=== PATIENT | female | born 1945 | race Two or more races ===

== ENCOUNTER 2017-12-06 12:41 | Emergency (ER) | payer OTHER ==
[~2017-12-06] VITALS: Ht 144.8 cm; Wt 68.0 kg
[~2017-12-06 12:41] MED LIST: CEFUROXIME250 MG PO; CELEXA40 MG PO; COZAAR100 MG PO; DITROPAN XL5 MG PO; FUROSEMIDE40 MG PO; GLIPIZIDE5 MG; GLUMETZA1000 MG PO; LAMICTAL100 M1 PO; PLAVIX75 MG; SENNA8.6 MG PO; TOPROL XL25 MG PO; VASOTEC10 MG NGT; ZOCOR20 MG PO
[2017-12-06] MEDS ORDERED: ZANTAC150 M3 (13:28)
[2017-12-06] MEDS ORDERED: COGENTIN2 MG/2 ML (13:33)
[2017-12-06] MEDS ORDERED: LATUDA20 MG (13:33)
== END 2017-12-06 16:15 | disposition home or self-care (01) ==
LOC: ER 12:41
DX: M25.551 Pain in right hip (principal)

== ENCOUNTER → 2018-03-22 | Emergency (ER) | payer OTHER ==
[~2018-03-22] VITALS: Ht 144.8 cm; Wt 68.5 kg
[~2018-03-22] MED LIST changes: +COGENTIN2 MG/2 ML; +LATUDA20 MG; +LATUDA60 MG; +VISTARIL25 MG PO; +ZANTAC150 M3
== END | disposition home or self-care (01) ==
LOC: ER 02:11
DX: I10 Essential (primary) hypertension (principal); F41.8 Other specified anxiety disorders

== ENCOUNTER → 2018-08-25 | Emergency (ER) | payer OTHER ==
[~2018-08-25] VITALS: Ht 144.8 cm; Wt 70.3 kg
[~2018-08-25] MED LIST changes: +LAMICTAL200 M1 PO; +LATUDA80 MG PO; +LOSARTAN-HCTZ1 EAC1 PO; +METFORMIN HCL500 M2 PO; +NORVASC2.5 M1 PO; +RESTORIL30 M1 PO
== END | disposition left against medical advice (07) ==
LOC: ER 22:43
DX: Z53.20 Procedure and treatment not carried out because of patient's decision for unspecified reasons (principal)

== ENCOUNTER 2018-10-05 15:20 | Outpatient (CLI) | payer OTHER | END 2018-10-05 16:21 | disposition home or self-care (01) | LOC: RAD 15:20 | DX: M54.5 Low back pain (principal); M25.551 Pain in right hip; M25.552 Pain in left hip ==

== ENCOUNTER 2018-10-18 12:56 | Outpatient (CLI) | payer OTHER | END 2018-10-18 13:00 | disposition home or self-care (01) | LOC: RAD 12:56 | DX: M47.28 Other spondylosis with radiculopathy, sacral and sacrococcygeal region (principal); M47.898 Other spondylosis, sacral and sacrococcygeal region ==

== ENCOUNTER 2018-12-27 11:35 | Outpatient (CLI) | payer OTHER | END 2018-12-27 11:38 | disposition home or self-care (01) | LOC: RAD 501 11:35 | DX: S62.91XA Unspecified fracture of right hand, initial encounter for closed fracture (principal) ==

== ENCOUNTER 2019-02-09 02:53 | Emergency (ER) | payer OTHER ==
[~2019-02-09] VITALS: Ht 144.8 cm; Wt 68.0 kg
[2019-02-09] MEDS ORDERED: SEN-O-TAB8.6 MG PO (03:27)
[2019-02-09] MEDS ORDERED: FOLIC ACID0.4 MG PO (03:27)
[2019-02-09] MEDS ORDERED: ZANTAC150 M3 (03:28)
== END 2019-02-09 13:43 | disposition home or self-care (01) ==
LOC: ER 02:53
DX: K52.89 Other specified noninfective gastroenteritis and colitis (principal)

== ENCOUNTER 2019-04-12 10:45 | Outpatient (CLI) | payer OTHER ==
[~2019-04-12 10:45] MED LIST changes: +FOLIC ACID0.4 MG PO; +SEN-O-TAB8.6 MG PO
== END 2019-04-12 10:47 | disposition home or self-care (01) ==
LOC: RAD 10:45
DX: J44.1 Chronic obstructive pulmonary disease with (acute) exacerbation (principal)

== ENCOUNTER → 2019-06-14 | Outpatient (CLI) | payer OTHER | END | disposition home or self-care (01) | LOC: NUCLEAR 08:05 | DX: I25.10 Atherosclerotic heart disease of native coronary artery without angina pectoris (principal) | CPT/HCPCS: 78452; 93017; A9500; J0153 ==

== ENCOUNTER 2019-10-22 19:36 | Emergency (ER) | payer OTHER ==
[~2019-10-22] VITALS: Ht 144.8 cm; Wt 72.6 kg
== END 2019-10-22 23:24 | disposition home or self-care (01) ==
LOC: ER 19:36
DX: M54.5 Low back pain (principal)

== ENCOUNTER 2020-10-07 14:58 | Outpatient (CLI) | payer OTHER | END 2020-10-07 15:04 | disposition home or self-care (01) | LOC: RAD 14:58 | PROVIDERS: ATTEND Internal Medicine | DX: M43.8X4 Other specified deforming dorsopathies, thoracic region (principal); M54.5 Low back pain; M54.6 Pain in thoracic spine; M54.2 Cervicalgia ==

== ENCOUNTER 2020-12-17 11:20 | Outpatient (CLI) | payer OTHER | END 2020-12-17 11:29 | disposition home or self-care (01) | LOC: MAMO-SONO 11:20 | PROVIDERS: ATTEND Internal Medicine | DX: Z12.31 Encounter for screening mammogram for malignant neoplasm of breast (principal); N64.59 Other signs and symptoms in breast ==

== ENCOUNTER 2021-02-05 09:39 | Outpatient (CLI) | payer OTHER | END 2021-02-05 09:40 | disposition home or self-care (01) | LOC: NUCLEAR 09:39 | PROVIDERS: ATTEND Internal Medicine | DX: I49.9 Cardiac arrhythmia, unspecified (principal) ==

== ENCOUNTER 2021-02-09 14:40 | Emergency (ER) | payer OTHER ==
[~2021-02-09] VITALS: Ht 144.8 cm; Wt 77.1 kg
[2021-02-09] MEDS ORDERED: KETO10TA2 PO (18:24)
[2021-02-09] MEDS ORDERED: CARAFATE1 GM PO (18:24)
[2021-02-09] MEDS ORDERED: NORFLEX100MG PO (18:24)
== END 2021-02-09 18:31 | disposition home or self-care (01) ==
LOC: ER 14:40
DX: M54.5 Low back pain (principal)

== ENCOUNTER 2021-02-13 18:16 | Emergency (ER) | payer OTHER ==
[~2021-02-13] VITALS: Ht 144.8 cm; Wt 76.2 kg
[~2021-02-13 18:16] MED LIST changes: +CARAFATE1 GM PO; +KETO10TA2 PO; +NORFLEX100MG PO
[2021-02-13] MEDS ORDERED: BACTRIM DS TAB1 EACH PO (22:56)
== END 2021-02-13 23:25 | disposition home or self-care (01) ==
LOC: ER 18:16
DX: M54.5 Low back pain (principal); R30.0 Dysuria; R53.81 Other malaise

== ENCOUNTER 2021-04-04 12:45 | Emergency (ER) | payer OTHER ==
[~2021-04-04] VITALS: Ht 144.8 cm; Wt 70.8 kg
[~2021-04-04 12:45] MED LIST changes: +BACTRIM DS TAB1 EACH PO
[2021-04-04] MEDS ORDERED: AMLODIPINE BESYL5 MG PO (13:10)
[2021-04-04] MEDS ORDERED: LOSARTAN POTASS50 MG PO (13:10)
[2021-04-04] MEDS ORDERED: CLOPIDOGREL BIS75 MG PO (13:10)
[2021-04-04] MEDS ORDERED: SIMVASTATIN20 MG PO (13:11)
[2021-04-04] MEDS ORDERED: OXYBUTYNIN CHLOR5 MG PO (13:11)
[2021-04-04] MEDS ORDERED: LAMICTAL200 MG PO (13:11)
[2021-04-04] MEDS ORDERED: METFORMIN HCL500 M4 PO (13:11)
[2021-04-04] MEDS ORDERED: RESTORIL30 MG PO (13:11)
[2021-04-04] MEDS ORDERED: CLONAZEPAM0.5 MG PO (13:11)
== END 2021-04-04 17:34 | disposition home or self-care (01) ==
LOC: ER 12:45
DX: S00.83XA Contusion of other part of head, initial encounter (principal); W18.09XA Striking against other object with subsequent fall, initial encounter; Y93.89 Activity, other specified; Y92.018 Other place in single-family (private) house as the place of occurrence of the external cause; Y99.8 Other external cause status

== ENCOUNTER 2022-05-07 11:20 | Emergency (ER) | payer OTHER ==
[~2022-05-07] VITALS: Ht 142.2 cm; Wt 72.6 kg
[~2022-05-07 11:20] MED LIST changes: +AMLODIPINE BESYL5 MG PO; +CLONAZEPAM0.5 MG PO; +CLOPIDOGREL BIS75 MG PO; +LAMICTAL200 MG PO; +LOSARTAN POTASS50 MG PO; +METFORMIN HCL500 M4 PO; +OXYBUTYNIN CHLOR5 MG PO; +RESTORIL30 MG PO; +SIMVASTATIN20 MG PO
[2022-05-07] MEDS ORDERED: PLAVIX75 MG PO (11:36)
[2022-05-07] MEDS ORDERED: DITROPAN XL5 MG PO (11:37)
[2022-05-07] MEDS ORDERED: IBU800 MG PO (14:15)
== END 2022-05-07 14:33 | disposition home or self-care (01) ==
LOC: ER 11:20
DX: M48.50XA Collapsed vertebra, not elsewhere classified, site unspecified, initial encounter for fracture (principal); M25.551 Pain in right hip; E11.9 Type 2 diabetes mellitus without complications; Z79.84 Long term (current) use of oral hypoglycemic drugs; I10 Essential (primary) hypertension; F03.90 Unspecified dementia, unspecified severity, without behavioral disturbance, psychotic disturbance, mood disturbance, and anxiety; R32 Unspecified urinary incontinence; M54.50 Low back pain, unspecified

== ENCOUNTER 2022-06-26 08:46 | Outpatient (CLI) | payer OTHER ==
[~2022-06-26 08:46] MED LIST changes: +IBU800 MG PO; +PLAVIX75 MG PO
== END 2022-06-26 08:52 | disposition home or self-care (01) ==
LOC: RAD 08:46
PROVIDERS: ATTEND Anesthesiology
DX: J12.89 Other viral pneumonia (principal)

== ENCOUNTER 2022-08-17 10:09 | Emergency (ER) | payer OTHER ==
[~2022-08-17] VITALS: Ht 144.8 cm; Wt 68.0 kg
[2022-08-17] MEDS ORDERED: VISTARIL50 MG PO (16:12)
== END 2022-08-17 16:38 ==
LOC: ER 10:09
DX: R42 Dizziness and giddiness (principal); F41.9 Anxiety disorder, unspecified; E11.9 Type 2 diabetes mellitus without complications; Z79.84 Long term (current) use of oral hypoglycemic drugs; I10 Essential (primary) hypertension; Z20.822 Contact with and (suspected) exposure to COVID-19; F01.50 Vascular dementia, unspecified severity, without behavioral disturbance, psychotic disturbance, mood disturbance, and anxiety

== ENCOUNTER 2022-09-08 12:43 | Outpatient (CLI) | payer OTHER ==
[~2022-09-08 12:43] MED LIST changes: +VISTARIL50 MG PO
== END 2022-09-08 12:53 | disposition home or self-care (01) ==
LOC: PPH VACUNA 12:43
PROVIDERS: ATTEND Emergency Medicine Pediatric Emergency Medicine
DX: Z23 Encounter for immunization (principal)

== ENCOUNTER 2022-11-04 12:08 | Emergency (ER) | payer OTHER ==
[~2022-11-04] VITALS: Ht 142.2 cm; Wt 68.0 kg
== END 2022-11-04 15:44 | disposition home or self-care (01) ==
LOC: ER 12:08
DX: S09.90XA Unspecified injury of head, initial encounter (principal); W19.XXXA Unspecified fall, initial encounter; Y93.9 Activity, unspecified; Y92.9 Unspecified place or not applicable; E11.9 Type 2 diabetes mellitus without complications; Z79.84 Long term (current) use of oral hypoglycemic drugs; E78.00 Pure hypercholesterolemia, unspecified; I10 Essential (primary) hypertension

== ENCOUNTER 2022-12-01 16:11 | Emergency (ER) | payer OTHER ==
[~2022-12-01] VITALS: Ht 157.5 cm; Wt 77.1 kg
== END 2022-12-01 21:00 | disposition home or self-care (01) ==
LOC: ER 16:11
DX: M25.551 Pain in right hip (principal)

== ENCOUNTER 2022-12-14 08:18 | Emergency (ER) | payer OTHER ==
[~2022-12-14] VITALS: Ht 149.9 cm; Wt 68.0 kg
== END 2022-12-14 11:49 | disposition home or self-care (01) ==
LOC: ER 08:18
DX: M54.17 Radiculopathy, lumbosacral region (principal); E11.9 Type 2 diabetes mellitus without complications; Z79.84 Long term (current) use of oral hypoglycemic drugs; I10 Essential (primary) hypertension; F03.90 Unspecified dementia, unspecified severity, without behavioral disturbance, psychotic disturbance, mood disturbance, and anxiety; Z86.73 Personal history of transient ischemic attack (TIA), and cerebral infarction without residual deficits

== ENCOUNTER 2022-12-23 01:56 | Emergency (ER) | payer OTHER ==
[~2022-12-23] VITALS: Ht 142.2 cm; Wt 68.0 kg
[2022-12-23] MEDS ORDERED: ZYNCOF 20-400120 ML PO (06:16)
== END 2022-12-23 06:25 ==
LOC: ER 01:56
DX: R06.02 Shortness of breath (principal); I10 Essential (primary) hypertension; E11.9 Type 2 diabetes mellitus without complications; Z79.84 Long term (current) use of oral hypoglycemic drugs

== ENCOUNTER 2023-11-30 19:46 | Emergency (ER) | payer OTHER ==
[~2023-11-30] VITALS: Ht 142.2 cm; Wt 67.6 kg
[~2023-11-30 19:46] MED LIST changes: +ZYNCOF 20-400120 ML PO
[2023-11-30] MEDS ORDERED: FOLIC ACID1 MG (20:10)
[2023-11-30] MEDS ORDERED: CLOPIDOGREL BIS75 MG (20:10)
[2023-11-30] MEDS ORDERED: AMLODIPINE BESYL5 MG (20:10)
[2023-11-30] MEDS ORDERED: LURASIDONE HCL120 MG (20:12)
[2023-11-30] MEDS ORDERED: ORPHENADRINE CITRATE 30 MG/ML AMPUL IM ONE (20:45)
[2023-11-30] MEDS ORDERED: KETOROLAC TROMETHAMINE 60 MG VIAL IM ONE (20:45)
== END 2023-11-30 20:46 | disposition home or self-care (01) ==
LOC: ER 19:46
DX: M54.89 Other dorsalgia (principal); E11.9 Type 2 diabetes mellitus without complications; Z79.84 Long term (current) use of oral hypoglycemic drugs; E03.9 Hypothyroidism, unspecified; I10 Essential (primary) hypertension

== ENCOUNTER → 2023-12-12 11:29 | Outpatient (CLI) | payer OTHER ==
[~2023-12-12 11:29] MED LIST changes: +AMLODIPINE BESYL5 MG; +CLOPIDOGREL BIS75 MG; +FOLIC ACID1 MG; +LURASIDONE HCL120 MG
== END | disposition home or self-care (01) ==
LOC: NUCLEAR 11:29
PROVIDERS: ATTEND Internal Medicine
DX: M81.0 Age-related osteoporosis without current pathological fracture (principal)

== ENCOUNTER 2024-05-07 14:09 | Outpatient (CLI) | payer OTHER | END 2024-05-07 14:15 | disposition home or self-care (01) | LOC: RAD 14:09 | PROVIDERS: ATTEND Internal Medicine | DX: M54.2 Cervicalgia (principal); M54.9 Dorsalgia, unspecified; M25.562 Pain in left knee; M25.551 Pain in right hip ==

== ENCOUNTER 2024-05-12 20:15 | Emergency (ER) | payer OTHER ==
[~2024-05-12] VITALS: Ht 142.2 cm; Wt 69.4 kg
[2024-05-12] MEDS ORDERED: LATUDA80 MG (20:24)
[2024-05-12] MEDS ORDERED: NORVASC5 MG PO (20:25)
[2024-05-12] MEDS ORDERED: ORPHENADRINE CITRATE 30 MG/ML AMPUL IM ONE (21:30)
[2024-05-12] MEDS ORDERED: KETOROLAC TROMETHAMINE 30 MG VIAL IM ONE (21:30)
[2024-05-12 22:08] LABS: HEMATOCRIT 43.3 % (36.0-45.00); HEMOGLOBIN 14.8 g/dL (12.0-15.00); MEAN CELL VOLUME 93.4 fL (80.00-100.00); MEAN CORPUSCULAR HGB CONC 34.2 g/dl (32.0-36.0); PLATELET COUNT 240 K/uL (150-450); RED BLOOD COUNT 4.64 M/uL (4.00-6.00); RED CELL DISTRIBUTION WIDTH 13.3 % (11.5-14.5)
[2024-05-12 22:11] LABS: CALCIUM 10.5 mg/dL (8.5-10.1); CREATININE SERUM 0.82 mg/dL (0.55-1.02); GFR 67.6; POTASSIUM 3.72 mEq/L (3.5-5.1)
[2024-05-12 22:30] LABS: PH,URINE 6.5 (5.0-8.0); URINE APPEARANCE Clear; URINE BILIRRUBIN Negative (NEGATIVE); URINE BLOOD Negative; URINE COLOR Yellow; URINE GLUCOSE Negative (NEGATIVE); URINE KETONE Negative (NEGATIVE); URINE LEUKOCYTE Moderate; URINE NITRATE Positive; URINE PROTEIN Negative (NEGATIVE)
[2024-05-12 22:33] LABS: URINE EPITHELIAL CELLS 13.4 uL (0.0-38.8); URINE RBC 6.5 uL (0.0-20.8); URINE WBC 478.8 uL (0.0-23.2)
[2024-05-12 22:36] LABS: URINE BACTERIA > 9821.5 uL (0.0-1933); URINE CAST 0.15 uL (0.0-1.40)
[2024-05-12] MEDS ORDERED: MACRODANTIN100 M1 PO (22:45)
[2024-05-12] MEDS ORDERED: CEFTRIAXONE SODIUM 1,000 MG VIAL ONE (22:57)
[2024-05-12] MEDS ORDERED: CEFTRIAXONE SODIUM 1,000 MG VIAL IM ONE (23:00)
== END 2024-05-13 00:14 ==
LOC: ER 20:16
PROVIDERS: Nurse Practitioner Family
DX: M54.9 Dorsalgia, unspecified (principal); G89.29 Other chronic pain; M51.36 Other intervertebral disc degeneration, lumbar region; I10 Essential (primary) hypertension; E11.9 Type 2 diabetes mellitus without complications; Z79.84 Long term (current) use of oral hypoglycemic drugs
CPT/HCPCS: 36415; 96372; 99282; J0696; J1885; J3490

== ENCOUNTER → 2024-06-14 09:33 | Outpatient (CLI) | payer OTHER ==
[~2024-06-14 09:33] MED LIST changes: +LATUDA80 MG; +LEXAPRO5 MG; +MACRODANTIN100 M1 PO; +NORVASC5 MG PO; +SEROQUEL25 MG
== END | disposition home or self-care (01) ==
LOC: NUCLEAR 09:33
PROVIDERS: ATTEND Internal Medicine
DX: R00.0 Tachycardia, unspecified (principal)

== ENCOUNTER 2024-06-15 22:16 | Emergency (ER) | payer OTHER ==
[~2024-06-15] VITALS: Ht 149.9 cm; Wt 59.0 kg
[~2024-06-15 22:16] MED LIST changes: -LEXAPRO5 MG; -SEROQUEL25 MG
[2024-06-15] MEDS ORDERED: SEROQUEL25 MG (22:22)
[2024-06-15] MEDS ORDERED: LEXAPRO5 MG (22:22)
[2024-06-16] MEDS ORDERED: ACETAMINOPHEN 500 MG GEL..CAP PO STA (00:39)
[2024-06-16] MEDS ORDERED: ACETAMINOPHEN 500 MG GEL..CAP PO ONE (00:40)
[2024-06-16] MEDS ORDERED: KETOROLAC TROMETHAMINE 30 MG VIAL IM STA (00:43)
[2024-06-16] MEDS ORDERED: KETOROLAC TROMETHAMINE 30 MG VIAL ONE (00:47)
== END 2024-06-16 01:47 | disposition home or self-care (01) ==
LOC: ER 22:16
DX: S79.812A Other specified injuries of left hip, initial encounter (principal); W06.XXXA Fall from bed, initial encounter; Y93.89 Activity, other specified; Y92.89 Other specified places as the place of occurrence of the external cause; Y99.8 Other external cause status; I10 Essential (primary) hypertension; E11.9 Type 2 diabetes mellitus without complications
CPT/HCPCS: 71111; 72170; 96372; 99283; J1885

== ENCOUNTER 2024-07-11 11:59 | Emergency (ER) | payer OTHER ==
[~2024-07-11] VITALS: Ht 142.2 cm; Wt 72.6 kg
[~2024-07-11 11:59] MED LIST changes: +LEXAPRO5 MG; +SEROQUEL25 MG
[2024-07-11] MEDS ORDERED: FOLIC ACID20 MG (12:44)
[2024-07-11] MEDS ORDERED: AZITHROMYCIN 500 MG TABLET PO ONE (13:00)
[2024-07-11] MEDS ORDERED: ACETAMINOPHEN 500 MG GEL..CAP PO ONE (13:00)
[2024-07-11] MEDS ORDERED: GUAIFENESIN/DEXTROMETHORPHAN 10ML BLIST.PACK PO ONE (13:00)
[2024-07-11 13:26] LABS: HEMOGLOBIN 14.2 g/dL (12.0-15.00); MEAN CELL VOLUME 93.2 fL (80.00-100.00); MEAN CORPUSCULAR HEMOGLOBIN 31.6 pg (27.00-32.0); MEAN CORPUSCULAR HGB CONC 33.9 g/dl (32.0-36.0); PLATELET COUNT 195 K/uL (150-450); RED BLOOD COUNT 4.51 M/uL (4.00-6.00); RED CELL DISTRIBUTION WIDTH 13.7 % (11.5-14.5)
[2024-07-11] MEDS ORDERED: TUSSIN100 MG/51 PO (14:17)
[2024-07-11] MEDS ORDERED: ZITHROMAX500 MG PO (14:17)
[2024-07-11] MEDS ORDERED: ZYRTEC10 MG PO (14:17)
== END 2024-07-11 14:46 | disposition home or self-care (01) ==
LOC: ER 12:00
PROVIDERS: General Practice
DX: J06.9 Acute upper respiratory infection, unspecified (principal); E11.9 Type 2 diabetes mellitus without complications; Z79.84 Long term (current) use of oral hypoglycemic drugs; Z20.822 Contact with and (suspected) exposure to COVID-19; I11.9 Hypertensive heart disease without heart failure

== ENCOUNTER 2024-11-22 14:03 | Emergency (ER) | payer OTHER ==
[~2024-11-22] VITALS: Ht 142.2 cm; Wt 72.6 kg
[~2024-11-22 14:03] MED LIST changes: +FOLIC ACID20 MG; +TUSSIN100 MG/51 PO; +ZITHROMAX500 MG PO; +ZYRTEC10 MG PO
[2024-11-22] MEDS ORDERED: NEURONTIN300 MG PO (14:16)
[2024-11-22] MEDS ORDERED: DITROPAN (14:18)
[2024-11-22 17:16] LABS: PH,URINE 7.5 (5.0-8.0); URINE APPEARANCE Cloudy; URINE BILIRRUBIN Negative (NEGATIVE); URINE BLOOD Negative; URINE COLOR Yellow; URINE GLUCOSE Negative (NEGATIVE); URINE KETONE Negative (NEGATIVE); URINE LEUKOCYTE Large; URINE NITRATE Positive; URINE PROTEIN Negative (NEGATIVE)
[2024-11-22 17:17] LABS: HEMATOCRIT 40.1 % (36.0-45.00); HEMOGLOBIN 13.2 g/dL (12.0-15.00); MEAN CELL VOLUME 94.7 fL (80.00-100.00); MEAN CORPUSCULAR HEMOGLOBIN 31.1 pg (27.00-32.0); MEAN CORPUSCULAR HGB CONC 32.8 g/dl (32.0-36.0); PLATELET COUNT 205 K/uL (150-450); RED BLOOD COUNT 4.23 M/uL (4.00-6.00); RED CELL DISTRIBUTION WIDTH 13.8 % (11.5-14.5)
[2024-11-22 17:20] LABS: URINE EPITHELIAL CELLS 12.6 uL (0.0-38.8); URINE RBC 3.3 uL (0.0-20.8); URINE WBC 295.1 uL (0.0-23.2)
[2024-11-22 17:26] LABS: URINE BACTERIA > 9821.5 uL (0.0-1933); URINE CAST 0.44 uL (0.0-1.40)
[2024-11-22 17:46] LABS: CALCIUM 8.7 mg/dL (8.5-10.1); CREATININE SERUM 0.77 mg/dL (0.55-1.02); GFR 72.5; POTASSIUM 4.47 mEq/L (3.5-5.1)
[2024-11-22 17:48] LABS: ALBUMIN 3.6 gm/dL (3.4-5.0); BILIRUBIN TOTAL 0.38 mg/dL (0.3-1.2); CALCIUM 8.7 mg/dL (8.5-10.1); CREATININE SERUM 0.84 mg/dL (0.55-1.02); GFR 65.57; GLOBULINA 3.3 G/DL (2.4-3.5); POTASSIUM 3.99 mEq/L (3.5-5.1); TOTAL PROTEIN 6.9 gm/dL (6.4-8.2)
[2024-11-22] MEDS ORDERED: KETOROLAC TROMETHAMINE 60 MG VIAL IM STA (19:03)
[2024-11-22] MEDS ORDERED: KETOROLAC TROMETHAMINE 60 MG VIAL IM ONE (19:14)
[2024-11-22] MEDS ORDERED: MACROBID 100 M100 MG PO (19:44)
[2024-11-22] MEDS ORDERED: CEFTRIAXONE SODIUM 1,000 MG VIAL IV SCH (19:45)
[2024-11-22] MEDS ORDERED: CEFTRIAXONE SODIUM 2,000 MG VIAL ONE (20:03)
== END 2024-11-22 23:11 | disposition home or self-care (01) ==
LOC: ER 14:05
DX: R60.0 Localized edema (principal); M54.17 Radiculopathy, lumbosacral region; I10 Essential (primary) hypertension; E11.9 Type 2 diabetes mellitus without complications; Z79.84 Long term (current) use of oral hypoglycemic drugs
CPT/HCPCS: 36415; 71045; 72100; 96365; 96366; 96372; 99283; J0696; J1885

== ENCOUNTER 2024-11-26 18:01 | Emergency (ER) | payer OTHER ==
[~2024-11-26] VITALS: Ht 142.2 cm; Wt 76.7 kg
[~2024-11-26 18:01] MED LIST changes: +DITROPAN; +MACROBID 100 M100 MG PO; +NEURONTIN300 MG PO
[2024-11-26] MEDS ORDERED: ADVIL DUAL ACT1 EACH PO (20:05)
[2024-11-26] MEDS ORDERED: KETOROLAC TROMETHAMINE 15 MG VIAL IM STA (20:07)
== END 2024-11-26 20:43 | disposition home or self-care (01) ==
LOC: ER 18:04
DX: R60.0 Localized edema (principal)

== ENCOUNTER 2024-12-06 21:30 | Emergency (ER) | payer OTHER ==
[~2024-12-06] VITALS: Ht 142.2 cm; Wt 76.7 kg
[~2024-12-06 21:30] MED LIST changes: +ADVIL DUAL ACT1 EACH PO
[2024-12-06] MEDS ORDERED: ACETAMINOPHEN 500 MG GEL..CAP PO STA (23:39)
[2024-12-06] MEDS ORDERED: KETOROLAC TROMETHAMINE 60 MG VIAL IM STA (23:39)
== END 2024-12-07 00:23 | disposition home or self-care (01) ==
LOC: ER 21:32
DX: S40.011A Contusion of right shoulder, initial encounter (principal); W18.39XA Other fall on same level, initial encounter; Y93.89 Activity, other specified; Y92.018 Other place in single-family (private) house as the place of occurrence of the external cause; M65.811 Other synovitis and tenosynovitis, right shoulder
CPT/HCPCS: 73030; 73060; 73090; 96372; 99283; J1885

== ENCOUNTER 2024-12-13 08:01 | Outpatient (CLI) | payer OTHER | END 2024-12-13 08:02 | disposition home or self-care (01) | LOC: NUCLEAR 08:01 | PROVIDERS: ATTEND Internal Medicine | DX: S49.91XA Unspecified injury of right shoulder and upper arm, initial encounter (principal); I87.2 Venous insufficiency (chronic) (peripheral) ==

== ENCOUNTER 2024-12-13 12:30 | Outpatient (CLI) | payer OTHER | END 2024-12-13 12:37 | disposition home or self-care (01) | LOC: SONOGRAMA 12:30 | PROVIDERS: ATTEND Internal Medicine | DX: S49.91XA Unspecified injury of right shoulder and upper arm, initial encounter (principal); X58.XXXA Exposure to other specified factors, initial encounter; Y93.9 Activity, unspecified; Y92.9 Unspecified place or not applicable; Y99.9 Unspecified external cause status ==

== ENCOUNTER 2025-01-29 21:33 | Emergency (ER) | payer OTHER ==
[~2025-01-29] VITALS: Ht 142.2 cm; Wt 74.4 kg
[2025-01-29] MEDS ORDERED: ACETAMINOPHEN 500 MG GEL..CAP PO ONE ×2 (23:30→23:47)
[2025-01-29] MEDS ORDERED: LIDOCAINE HCL 1% 10ML VIAL ONE (23:47)
== END 2025-01-30 00:18 | disposition home or self-care (01) ==
LOC: ER 21:33
DX: M79.651 Pain in right thigh (principal); M54.50 Low back pain, unspecified; I10 Essential (primary) hypertension

== ENCOUNTER 2025-03-25 16:39 | Emergency (ER) | payer OTHER ==
[~2025-03-25] VITALS: Ht 142.2 cm; Wt 76.7 kg
[2025-03-25] MEDS ORDERED: FUROsemide 40 MG/4 ML VIAL IV ONE (20:00)
[2025-03-25] MEDS ORDERED: KETOROLAC TROMETHAMINE 60 MG VIAL IM ONE (20:00)
[2025-03-25 20:46] LABS: BASO % 0.5 % (0.1-1.2); EOS # 0.19 (0.04-0.54); EOS % 2.6 % (0.7-7.0); HEMATOCRIT 40.6 % (34.1-44.9); HEMOGLOBIN 13.3 g/dL (11.2-15.7); LYMPH # 1.71 (1.18-3.74); LYMPH % 23.4 % (19.3-53.1); MEAN CORPUSCULAR HEMOGLOBIN 30.5 pg (25.6-32.2); MONO # 0.62 (0.24-0.82); MONO % 8.5 % (4.7-12.5); NEUT # 4.67 (1.56-6.13); NEUT % 63.8 % (34.0-71.1); PLATELET COUNT 287 K/uL (163-369); RED BLOOD COUNT 4.36 M/uL (3.93-5.22); RED CELL DISTRIBUTION WIDTH 13.6 % (11.6-14.4)
[2025-03-25 21:02] LABS: ALBUMIN 3.3 gm/dL (3.4-5.0); BILIRUBIN TOTAL 0.28 mg/dL (0.3-1.2); CALCIUM 9.4 mg/dL (8.5-10.1); CREATININE SERUM 0.66 mg/dL (0.55-1.02); GFR 86.61; GLOBULINA 3.3 G/DL (2.4-3.5); POTASSIUM 4.31 mEq/L (3.5-5.1); TOTAL PROTEIN 6.6 gm/dL (6.4-8.2)
[2025-03-25 21:17] LABS: PH,URINE 6.5 (5.0-8.0); URINE APPEARANCE Clear; URINE BILIRRUBIN Negative (NEGATIVE); URINE BLOOD Negative; URINE COLOR Dark Yellow; URINE GLUCOSE Negative (NEGATIVE); URINE KETONE Negative (NEGATIVE); URINE LEUKOCYTE Small; URINE NITRATE Positive; URINE PROTEIN Negative (NEGATIVE)
[2025-03-25 21:21] LABS: URINE BACTERIA 11.9 uL (0.0-1933); URINE RBC 3.9 uL (0.0-20.8); URINE WBC 2.4 uL (0.0-23.2)
[2025-03-25] MEDS ORDERED: DICLOFENAC SODI75 MG PO (22:54)
[2025-03-25] MEDS ORDERED: DUI500 PO (22:57)
[2025-03-25] MEDS ORDERED: TRAMADOL HCL 50 MG TABLET PO ONE (23:30)
== END 2025-03-25 23:35 | disposition home or self-care (01) ==
LOC: ER 16:39
PROVIDERS: General Practice
DX: R60.0 Localized edema (principal); M54.89 Other dorsalgia; M51.369 Other intervertebral disc degeneration, lumbar region without mention of lumbar back pain or lower extremity pain; M85.88 Other specified disorders of bone density and structure, other site; E11.9 Type 2 diabetes mellitus without complications; Z79.84 Long term (current) use of oral hypoglycemic drugs; I10 Essential (primary) hypertension

== ENCOUNTER 2025-06-24 23:08 | Inpatient (IN) | payer OTHER ==
[~2025-06-24] VITALS: Ht 162.6 cm; Wt 136.1 kg
[~2025-06-24 23:08] MED LIST changes: +DICLOFENAC SODI75 MG PO; +DUI500 PO
[2025-06-24] MEDS ORDERED: TRAZODONE HCL100 MG PO (23:32)
[2025-06-24] MEDS ORDERED: LAMICTAL100 MG PO (23:33)
[2025-06-24] MEDS ORDERED: QUETIAPINE FUMA25 MG PO (23:34)
[2025-06-24] MEDS ORDERED: QUETIAPINE FUM100 MG PO (23:34)
[2025-06-24] MEDS ORDERED: LEXAPRO20 MG PO (23:36)
[2025-06-24] MEDS ORDERED: CEVIMELINE HCL30 MG PO (23:37)
[2025-06-24] MEDS ORDERED: DOXAZOSIN MESYLA2 MG PO (23:37)
--- NOTE | 2025-06-24 23:38 | NUR ---
SE RECIBE PTE ALERTA Y ORIENTADA SOLO EN PERSONA, GRITANDO FRASES SIN SENTIDO, PRESENTANDO MOVIMIENTOS ERRATICOS; ACOMPANADA DE FAMILIAR QUIEN INDICA PTE PRESENTA EPISODIO DE ESTATUS MENTAL ALTERADO EL CUAL COMENZO EL [place] DE [place]. PERSONAL DE AMBULANCIAS INDICA QUE ORIGINALMENTE DEBIA SER ADMITIDA EN [facility], DORON DECLINARON ADMISION HASTA OBTENER CLEARENCE DE MEDICINA. SE MIDEN SV Y SE UBICA.
[2025-06-25] MEDS ORDERED: DIPHENHYDRAMINE HCL 50 MG/ML VIAL 1ML IV ONE (00:15)
[2025-06-25] MEDS ORDERED: HALOPERIDOL LACTATE 5 MG/ML AMPUL IV ONE (00:15)
[2025-06-25] MEDS ORDERED: LORazepam 2 MG/ML VIAL IV ONE (00:15)
[2025-06-25] MEDS ORDERED: DIPHENHYDRAMINE HCL 50 MG/ML VIAL 1ML ONE (00:40)
[2025-06-25] MEDS ORDERED: LORazepam 2 MG/ML VIAL ONE (00:40)
[2025-06-25] MEDS ORDERED: HALOPERIDOL LACTATE 5 MG/ML AMPUL ONE (00:40)
[2025-06-25 01:07] LABS: BASO % 0.6 % (0.1-1.2); EOS # 0.26 (0.04-0.54); EOS % 3.2 % (0.7-7.0); LYMPH # 1.14 (1.18-3.74); LYMPH % 14.0 % (19.3-53.1); MEAN PLATELET VOLUME 9.00 fl (9.4-12.4); MONO # 0.75 (0.24-0.82); MONO % 9.2 % (4.7-12.5); NEUT # 5.92 (1.56-6.13); NEUT % 72.5 % (34.0-71.1); RED CELL DISTRIBUTION WIDTH 13.4 % (11.6-14.4)
[2025-06-25 01:35] LABS: COVID-19 AG NEGATIVE (NEGATIVE)
[2025-06-25 01:58] LABS: ALT/SGPT 39.0 U/L (12-78); AST/SGOT 55.0 U/L (15-37); BILIRUBIN TOTAL 0.24 mg/dL (0.3-1.2); BUN CREA RATIO 47.0 (7.0-25.0); CREATININE SERUM 0.59 mg/dL (0.55-1.02); GFR 98.32; GLOBULINA 2.6 G/DL (2.4-3.5); GLUCOSE FASTING 164.0 mg/dL (65-100); OSMOLALITY SERUM 292.0 MOSM/KG (275-295)
[2025-06-25 02:00] LABS: PHOSPHOKINASE CREATININE 1257.0 U/L (26-192)
[2025-06-25 02:05] LABS: INR 1.03
[2025-06-25 02:29] LABS: URINE APPEARANCE Cloudy; URINE BILIRRUBIN Negative (NEGATIVE); URINE BLOOD NHT; URINE COLOR Yellow; URINE GLUCOSE Negative (NEGATIVE); URINE KETONE Negative (NEGATIVE); URINE LEUKOCYTE Large; URINE NITRATE Positive; URINE PROTEIN Negative (NEGATIVE); URINE UROBILINOGEN 1.0 E.U./dl
[2025-06-25 02:33] LABS: URINE EPITHELIAL CELLS 17.3 uL (0.0-38.8); URINE RBC 32.1 uL (0.0-20.8); URINE WBC 1071.3 uL (0.0-23.2)
[2025-06-25 02:38] LABS: COCAINE NEGATIVE (NEGATIVE); METHADONE NEGATIVE (NEGATIVE); OPIATES NEGATIVE (NEGATIVE); THC ( Cannabinoids) NEGATIVE (NEGATIVE)
[2025-06-25 02:52] LABS: URINE BACTERIA > 9821.5 uL (0.0-1933); URINE CAST 0.58 uL (0.0-1.40)
--- NOTE | 2025-06-25 05:45 | NUR ---
SE ORIENTA PTE Y FAMILIAR SOBRE TX, FAMILIAR REFIERE ENTENDER Y ACEPTAR. SE PATRIZIA MUESTRAS DE LABORATORIO, SE CANALIZA Y SE ADMINISTRAN MEDICAMENTOS YOGI ORDEN MEDICA. PTE TOLERA Y NO PRESENTA REACCION ADVERSA.
[2025-06-25] MEDS ORDERED: CEFTRIAXONE SODIUM 2,000 MG VIAL IV ONE (06:30)
[2025-06-25] MEDS ORDERED: 0.9 % SODIUM CHLORIDE 1,000 ML IV ONE (06:30)
[2025-06-25] MEDS ORDERED: CEFTRIAXONE SODIUM 2,000 MG VIAL ONE ×2 (06:39→15:27)
[2025-06-25] MEDS ORDERED: CEFTRIAXONE SODIUM 2,000 MG in 0.9 % SODIUM CHLORIDE 100 ML IV ONE (12:30)
[2025-06-25] MEDS ORDERED: FAMOTIDINE/PF 20 MG in 0.9 % SODIUM CHLORIDE 8 ML IV PUSH SCH (14:51)
[2025-06-25] MEDS ORDERED: VANCOMYCIN HCL 1,000 MG VIAL IV SCH (14:51)
[2025-06-25] MEDS ORDERED: DEXTROSE 50 % IN WATER 0.5 G/ML DISP.SYRIN IV PRN (15:00)
[2025-06-25] MEDS ORDERED: ACETAMINOPHEN 325 MG TABLET PO PRN (15:00)
[2025-06-25] MEDS ORDERED: INSULIN LISPRO 1,000 UNIT/10 ML UNITS SUBCUTANEO PRN (15:00)
[2025-06-25] MEDS ORDERED: ENOXAPARIN SODIUM 40 MG/0.4 ML SYRINGE SUBCUTANEO SCH (15:22)
[2025-06-25] MEDS ORDERED: QUETIAPINE FUMARATE 25 MG TABLET PO SCH (15:23)
[2025-06-25] MEDS ORDERED: ESCITALOPRAM OXALATE 20 MG TABLET PO SCH (15:25)
[2025-06-25] MEDS ORDERED: ATORVASTATIN CALCIUM 20 MG TABLET PO SCH (15:26)
[2025-06-25] MEDS ORDERED: ENOXAPARIN SODIUM 40 MG/0.4 ML SYRINGE SUBCUTANEO ONE (15:28)
[2025-06-25] MEDS ORDERED: VANCOMYCIN HCL 1,000 MG VIAL ONE ×2 (15:28→23:30)
[2025-06-25] MEDS ORDERED: FAMOTIDINE/PF 20 MG/2 ML VIAL ONE (15:28)
[2025-06-25] MEDS ORDERED: 0.9 % SODIUM CHLORIDE 1,000 ML IV SCH (15:30)
[2025-06-25] MEDS ORDERED: QUETIAPINE FUMARATE 100 MG TABLET PO SCH (17:00)
[2025-06-25] MEDS ORDERED: LOSARTAN POTASSIUM 50 MG TABLET PO SCH (17:00)
[2025-06-25] MEDS ORDERED: DOXAZOSIN MESYLATE 2 MG TABLET PO SCH (17:00)
[2025-06-25] MEDS ORDERED: TRAZODONE HCL 50 MG TABLET PO SCH (17:00)
[2025-06-25 17:26] VITALS: BP 170/80; O2SAT 97
[2025-06-26] VITALS: BP 153/79; O2SAT 95
[2025-06-26] MEDS ORDERED: PATIENTS OWN MEDICATION (MEDICAMENTO EN PISO) PO SCH (09:00)
[2025-06-26] MEDS ORDERED: ENOXAPARIN SODIUM 40 MG/0.4 ML SYRINGE SUBCUTANEO SCH (09:00)
[2025-06-26 09:54] VITALS: BP 166/84; O2SAT 94
[2025-06-26 16:22] LABS: INR 1.05
[2025-06-26] MEDS ORDERED: CEFTRIAXONE SODIUM 2,000 MG VIAL IV SCH (17:00)
[2025-06-26] MEDS ORDERED: LACTOBACILLUS ACIDOPHILUS 1 CAP CAP PO SCH (17:00)
[2025-06-26] MEDS ORDERED: VANCOMYCIN HCL 5 MG/ML REDILUIDO IV SCH (17:00)
[2025-06-26 17:16] VITALS: BP 171/84; O2SAT 96
[2025-06-26 23:39] VITALS: BP 141/65; O2SAT 95
[2025-06-27 06:40] LABS: BASO % 0.7 % (0.1-1.2); EOS # 0.26 (0.04-0.54); EOS % 4.4 % (0.7-7.0); LYMPH # 1.33 (1.18-3.74); LYMPH % 22.5 % (19.3-53.1); MEAN PLATELET VOLUME 9.30 fl (9.4-12.4); MONO # 0.46 (0.24-0.82); MONO % 7.8 % (4.7-12.5); NEUT # 3.78 (1.56-6.13); NEUT % 64.1 % (34.0-71.1); RED CELL DISTRIBUTION WIDTH 13.3 % (11.6-14.4)
[2025-06-27 07:08] LABS: ALT/SGPT 37.0 U/L (12-78); AST/SGOT 22.0 U/L (15-37); BILIRUBIN TOTAL 0.26 mg/dL (0.3-1.2); BUN CREA RATIO 17.0 (7.0-25.0); CREATININE SERUM 0.63 mg/dL (0.55-1.02); GFR 91.16; GLOBULINA 2.9 G/DL (2.4-3.5); GLUCOSE FASTING 151.0 mg/dL (65-100); OSMOLALITY SERUM 289.0 MOSM/KG (275-295); PHOSPHOKINASE CREATININE 199.0 U/L (26-192)
[2025-06-27 08:00] VITALS: BP 183/83; O2SAT 97
== END 2025-06-27 15:38 | disposition home or self-care (01) | DRG 603 ==
LOC: ER 23:08 → SEC-K 06-25 14:50 → SURG 06-25 16:17
PROVIDERS: General Practice; Internal Medicine Infectious Disease; Preventive Medicine Public Health & General Preventive Medicine; ADMIT Internal Medicine; ATTEND Internal Medicine
PROC: BW28ZZZ Computerized Tomography (CT Scan) of Head (ICD-10-PCS; principal; 2025-06-24)
DX: L03.115 Cellulitis of right lower limb (principal); M62.82 Rhabdomyolysis; R41.82 Altered mental status, unspecified; R74.8 Abnormal levels of other serum enzymes

== ENCOUNTER 2025-07-11 02:42 | Emergency (ER) | payer OTHER ==
[~2025-07-11] VITALS: Ht 142.2 cm; Wt 77.1 kg
[~2025-07-11 02:42] MED LIST changes: +CEVIMELINE HCL30 MG PO; +DOXAZOSIN MESYLA2 MG PO; +LAMICTAL100 MG PO; +LEXAPRO20 MG PO; +QUETIAPINE FUM100 MG PO; +QUETIAPINE FUMA25 MG PO; +TRAZODONE HCL100 MG PO
[2025-07-11] MEDS ORDERED: CARDURA1 MG (03:02)
[2025-07-11] MEDS ORDERED: CEFTRIAXONE SODIUM 1,000 MG VIAL IV STA (05:10)
[2025-07-11] MEDS ORDERED: KETOROLAC TROMETHAMINE 30 MG VIAL IV STA (05:10)
[2025-07-11] MEDS ORDERED: KETOROLAC TROMETHAMINE 30 MG VIAL ONE (05:11)
[2025-07-11 06:25] LABS: BASO % 0.5 % (0.1-1.2); EOS # 0.29 (0.04-0.54); EOS % 3.6 % (0.7-7.0); LYMPH # 2.38 (1.18-3.74); LYMPH % 29.2 % (19.3-53.1); MEAN PLATELET VOLUME 9.20 fl (9.4-12.4); MONO # 0.89 (0.24-0.82); MONO % 10.9 % (4.7-12.5); NEUT # 4.48 (1.56-6.13); NEUT % 55.1 % (34.0-71.1); RED CELL DISTRIBUTION WIDTH 13.2 % (11.6-14.4)
[2025-07-11 06:50] LABS: ERYTHROCYTE SEDIMENTATION RATE 7 mm/hr (0-30)
[2025-07-11 07:17] LABS: ALT/SGPT 23.0 U/L (12-78); AST/SGOT 15.0 U/L (15-37); BILIRUBIN TOTAL 0.24 mg/dL (0.3-1.2); BUN CREA RATIO 58.0 (7.0-25.0); CREATININE SERUM 0.62 mg/dL (0.55-1.02); GFR 92.85; GLOBULINA 3.2 G/DL (2.4-3.5); GLUCOSE FASTING 156.0 mg/dL (65-100); OSMOLALITY SERUM 293.0 MOSM/KG (275-295)
[2025-07-11 07:24] LABS: URINE APPEARANCE Clear; URINE BILIRRUBIN Negative (NEGATIVE); URINE BLOOD Trace; URINE COLOR Yellow; URINE GLUCOSE Negative (NEGATIVE); URINE KETONE Negative (NEGATIVE); URINE LEUKOCYTE Small; URINE NITRATE Negative; URINE PROTEIN Negative (NEGATIVE); URINE UROBILINOGEN 1.0 E.U./dl
[2025-07-11 07:28] LABS: URINE BACTERIA 15.6 uL (0.0-1933); URINE EPITHELIAL CELLS 6.6 uL (0.0-38.8); URINE RBC 3.0 uL (0.0-20.8); URINE WBC 20.4 uL (0.0-23.2)
[2025-07-11 07:32] LABS: URINE CAST 0.00 uL (0.0-1.40)
[2025-07-11] MEDS ORDERED: AMOX-CLAV 875-1 EACH PO (08:29)
== END 2025-07-11 08:41 ==
LOC: ER 02:43
PROVIDERS: General Practice
DX: L03.115 Cellulitis of right lower limb (principal); I11.9 Hypertensive heart disease without heart failure; E11.9 Type 2 diabetes mellitus without complications; Z79.84 Long term (current) use of oral hypoglycemic drugs; I49.8 Other specified cardiac arrhythmias; R53.81 Other malaise
CPT/HCPCS: 36415; 93005; 96365; 99283; J0696; J1885